=== PATIENT | male | born 1970 | race Caucasian/White ===

== ENCOUNTER 2022-02-26 01:54 | Emergency (ER) | payer OTHER ==
[~2022-02-26] VITALS: Ht 165.1 cm; Wt 63.5 kg
[2022-02-26 01:54] VITALS: BP 0/0
--- NOTE | 2022-02-26 01:54 | NUR ---
44 : See code blue sheet.
--- NOTE | 2022-02-26 01:54 | NUR ---
0144- PT BIBA ALS ,CPR IN PROGRESS. PT TAKEN TO BED 10. DR. PEACE AND RESPIRATORY AT BEDSIDE
--- NOTE | 2022-02-26 01:59 | NUR ---
X-Ray at bedside.
--- NOTE | 2022-02-26 02:10 | NUR ---
Called code : see code blue record sheet
--- NOTE | 2022-02-26 02:20 | NUR ---
Dr. Cho pronounce Time of .
--- NOTE | 2022-02-26 02:58 | NUR ---
CALL TO CORONERS OFFICE, INFORMATION GIVEN, BILL CUTTER WILL CALL BACK
--- NOTE | 2022-02-26 03:07 | NUR ---
RETURN CALL FROM [employer]
--- NOTE | 2022-02-26 03:17 | NUR ---
PT RELEASED BY MANAGER OF PHOTOGRAPHY, CASE # [id number]
--- NOTE | 2022-02-26 03:42 | NUR ---
PTS AT BEDSIDE
--- NOTE | 2022-02-26 04:24 | NUR ---
BODY MOVED TO ROOM 127
--- NOTE | 2022-02-26 05:43 | NUR ---
YELLOW METAL RING, ENGRAVED WITH THE NAME ROMY, GIVEN TO PTS SON
== END 2022-02-26 02:20 ==
LOC: MED 01:54
DX: I46.9 Cardiac arrest, cause unspecified (principal)
CPT/HCPCS: 31500; 71045; 92950; 99285; Q0092